=== PATIENT | female | born 1995 | race Caucasian/White ===

== ENCOUNTER 2016-03-14 02:58 | Emergency (ER) | payer OTHER ==
[~2016-03-14] VITALS: Ht 152.4 cm; Wt 83.2 kg
[~2016-03-14 02:58] MED LIST: ATV5X PO; CALC500C3 PO; IBUP-103 PO; LACT1CAP6 PO; ONDA4TAB46 PO; VANC1CAP3 PO
[2016-03-14 03:14] VITALS: TEMP 36.9; Ht 152.4 cm; Wt 83.2 kg
[2016-03-14] MEDS ORDERED: LORAZEPAM 2 MG/ML 1 ML VIAL IV STA (03:29)
[2016-03-14] MEDS ORDERED: SODIUM CHLORIDE 0.9% 1000ML 1,000 ML IV STA (03:29)
--- NOTE | 2016-03-14 03:33 | EMERGENCY ROOM VISIT NOTE ---
History Report prepared by Meenu: Cheryl Romero Under the Supervision of: Dr. Chung Rich M.D. First contact with patient: 03:23 Chief Complaint: ABDOMINAL PAIN Stated Complaint: FEVER?,STOMACH PAIN,LOOSE STOOL,DRANK SHAKEOLOGY Nursing Triage Summary: Pt states she burak a Shakeology dring yesterday and wasn't feeling well afterwards. She drank another one tonight and started having GI sx. Pt states she had an anxiety attack and want to be reassusred that she is OK. History of Present Illness The patient is a 21 year old female who presents to the Emergency Room with complaints of persistent bilateral lower quadrant abdominal pain that began today. She currently rates her discomfort as a 4/10 in severity. The patient states that she recently tried Shakeology. She states that she started feeling sick after she took the Shakeology. The patient states that she has been having abdominal pain, diarrhea, and nausea. She additionally notes that she has been feeling fatigued. The patient states that she feels warm, but denies any fever. She states that since she has been feeling ill, she has been increasingly anxious, noting that she had a panic attack. The patient denies any chest pain, shortness of breath, vomiting, urinary symptoms or chance of . She states that her dad was recently sick with an upper respiratory infection. The patient denies taking anything for her discomfort. She denies mixing the Shakeology with alcohol. Source of History: patient Onset: today Position: abdomen (bilateral lower quadrants) Symptom Intensity: 4/10 Timing: other (persistent) Associated Symptoms: + diarrhea, + fatigue, + nausea, No SOB, No chest pain , No fevers, No urinary symptoms, No vomiting Note: Associated Symptoms: panic attack, increasingly anxious. Review of Systems See HPI for pertinent positives & negatives. A total of 10 systems reviewed and were otherwise negative. Past Medical & Surgical Medical Problems: (1) Asthma (2) Bronchitis (3) Depression (4) Danny-Danlos disease (5) Pneumonia Family History Cancer Diabetes mellitus Gallbladder disease Heart disease Hypertension Kidney disease Kidney stones Lung disease Seizures Social History Smoking Status: Never Smoker Alcohol Use: none Marital Status: single Housing Status: lives with friends Occupation Status: unemployed Current/Historical Medications Scheduled Lorazepam (Lorazepam), 0.5 MG PO BID Scheduled PRN Calcium Carbonate (Tums), 500 MG PO UD PRN for Indigestion Ibuprofen Tab (Advil), 1-4 TABS PO Q4H PRN for Pain Allergies Coded Allergies: Amoxicillin (Unverified Allergy, Unknown, "hives", 03/14/16) Bacitracin (Unverified Allergy, Unknown, ., 03/14/16) Metronidazole (Verified Allergy, Unknown, hives, 03/14/16) Shellfish (Unverified Allergy, Unknown, "tongue swells with calamari", ) Valacyclovir (Verified Allergy, Unknown, LOSS OF SENSE OF DIRECTION AFTER TAKING/, 03/14/16) Morphine and Related (Verified Adverse Reaction, Unknown, "BAD FEELING", ) Uncoded Allergies: CALIMARI (Allergy, Unknown, ., 11/17/14) CT CONTRAST (Allergy, Unknown, ., 11/17/14) Physical Exam Vital Signs Date Time Temp Pulse Resp B/P Pulse Ox O2 Delivery O2 Flow Rate FiO2 03/14/16 04:29 100 20 129/89 97 Room Air 03/14/16 03:14 36.9 111 20 132/71 95 Room Air Physical Exam GENERAL: Patient is anxious appearing and in no acute distress. HEENT: No acute trauma, normocephalic atraumatic, mucous membranes moist, no nasal congestion, no scleral icterus. NECK: No stridor, no adenopathy, no meningismus, trachea is midline. LUNGS: No dyspnea. Clear to auscultation and equal bilaterally. No wheeze, no rhonchi. HEART: Mildly tachycardic rate and regular rhythm. No murmurs, rubs, gallops appreciated. ABDOMEN: Soft, nontender, bowel sounds positive, no masses appreciated, no peritonitis. BACK: No midline tenderness, no CVA tenderness EXTREMITIES: Normal motion all extremities, no cyanosis, no edema. NEUROLOGIC: Alert and oriented, no acute motor or sensory deficits, no focal weakness, cranial nerves grossly intact. SKIN: No rash, no jaundice, no diaphoresis., Medical Decision & Procedures Laboratory Results 03/14/16 03:50 Red Blood Count 4.93, Mean Corpuscular Volume 86.4, Mean Corpuscular Hemoglobin 31.0, Mean Corpuscular Hemoglobin Concent 35.9, Mean Platelet Volume 10.6, Neutrophils (%) (Auto) 55.5, Lymphocytes (%) (Auto) 36.2, Monocytes (%) (Auto) 7.1, Eosinophils (%) (Auto) 0.9, Basophils (%) (Auto) 0.2, Neutrophils # (Auto) 5.02, Lymphocytes # (Auto) 3.27, Monocytes # (Auto) 0.64, Eosinophils # (Auto) 0.08, Basophils # (Auto) 0.02 03/14/16 03:50 Test 03/14/16 03:40 03/14/16 03:50 Urine Color YELLOW Urine Appearance CLEAR (CLEAR) Urine pH 5.0 (4.5-7.5) Urine Specific Ulmer 1.006 (1.000-1.030) Urine Protein NEG (NEG) Urine Glucose (UA) NEG (NEG) Urine Ketones NEG (NEG) Urine Occult Blood NEG (NEG) Urine Nitrite NEG (NEG) Urine Bilirubin NEG (NEG) Urine Urobilinogen NEG (NEG) Urine Leukocyte Esterase SMALL (NEG) Urine WBC (Auto) 1-5 /hpf (0-5) Urine RBC (Auto) 0-4 /hpf (0-4) Urine Hyaline Casts (Auto) 1-5 /lpf (0-5) Urine Epithelial Cells (Auto) 10-20 /lpf (0-5) Urine Bacteria (Auto) PRESENT (NEG) Urine Test NEG (NEG) White Blood Count 9.04 K/uL (4.8-10.8) Red Blood Count 4.93 M/uL (4.2-5.4) Hemoglobin 15.3 g/dL (12.0-16.0) Hematocrit 42.6 % (37-47) Mean Corpuscular Volume 86.4 fL (80-100) Mean Corpuscular Hemoglobin 31.0 pg (25-34) Mean Corpuscular Hemoglobin Concent 35.9 g/dl (32-36) Platelet Count 222 K/uL (130-400) Mean Platelet Volume 10.6 fL (7.4-10.4) Neutrophils (%) (Auto) 55.5 % Lymphocytes (%) (Auto) 36.2 % Monocytes (%) (Auto) 7.1 % Eosinophils (%) (Auto) 0.9 % Basophils (%) (Auto) 0.2 % Neutrophils # (Auto) 5.02 K/uL (1.4-6.5) Lymphocytes # (Auto) 3.27 K/uL (1.2-3.4) Monocytes # (Auto) 0.64 K/uL (0.11-0.59) Eosinophils # (Auto) 0.08 K/uL (0-0.5) Basophils # (Auto) 0.02 K/uL (0-0.2) RDW Standard Deviation 40.5 fL (36.4-46.3) RDW Coefficient of Variation 12.7 % (11.5-14.5) Immature Granulocyte % (Auto) 0.1 % Immature Granulocyte # (Auto) 0.01 K/uL (0.00-0.02) Anion Gap 9.0 mmol/L (3-11) Est Creatinine Clear Calc Drug Dose 108.7 ml/min Estimated GFR () 126.1 Estimated GFR (Non- 108.8 BUN/Creatinine Ratio 19.3 (10-20) Calcium Level 9.5 mg/dl (8.5-10.1) Total Bilirubin 0.3 mg/dl (0.2-1) Direct Bilirubin < 0.1 mg/dl (0-0.2) Aspartate Amino Transf (AST/SGOT) 13 U/L (15-37) Alanine Aminotransferase (ALT/SGPT) 27 U/L (12-78) Alkaline Phosphatase 153 U/L (45-117) Total Protein 8.0 gm/dl (6.4-8.2) Albumin 4.2 gm/dl (3.4-5.0) Lipase 163 U/L (73-393) Laboratory results as reviewed by me. Medications Administered Medications (Trade) Dose Ordered Sig/Stewart Route Start Time Stop Time Status Last Admin Dose Admin Sodium Chloride (Nss 1000ml) 1,000 ml @ 999 mls/hr Q1H1M STAT IV 03/14/16 03:29 03/14/16 04:29 DC 03/14/16 03:52 999 MLS/HR Lorazepam (Ativan Tab) 1 mg NOW STAT SL 03/14/16 03:54 03/14/16 03:55 DC 03/14/16 03:59 1 MG ED Course 0323: The patient was evaluated in room B10. A complete history and physical exam was performed. 0329: Ordered Sodium Chloride 1000 ml @ 999 mls/hr IV. 0354: Ordered Ativan Tab 1 mg SL. 0435: I reevaluated the patient and she is still feeling anxious. I discussed the exam findings with her. I discussed the treatment plan with her and she states that she will take Benadryl at home if she is still anxious. She notes that her therapist has diagnosed with somatization disorder. She is in agreement with the plan. She is ready to go home. Medical Decision 21 yr old female arrives for evaluation of abdominal pain. Pain is vague, mild and without any TTP. Labs are completely unremarkable. She does not have evidence of intraabdominal infection. She has no respiratory, cardiac complaints. Symptoms are not consistent with allergic reaction. May be early GI bug versus irritation from this dieting drink she drank. I feel much of her issue is more anxiety related. I know her from previous visits and review of chart reveals many previous visits for anxiety, stress, and in particular anxiety about her health. She is stable and looks well otherwise. She was given ativan though she continued to just get herself more worked up. I discussed trying other sedative medications but after being told that everything looks fine she would prefer to go home and try sleeping. Suggested she try benadryl tablet at home if need be. Impression Primary Impression: Abdominal discomfort, generalized Additional Impressions: Acute anxiety Anxiety about health Scribe Attestation The scribe's documentation has been prepared under my direction and personally reviewed by me in its entirety. I confirm that the note above accurately reflects all work, treatment, procedures, and medical decision making performed by me. Departure Information Dispostion Home / Self-Care Referrals Yonathan Trejo M.D. (PCP) Forms HOME CARE DOCUMENTATION FORM, IMPORTANT VISIT INFORMATION Patient Instructions Anxiety Body Response, My [facility] Health Problem Qualifiers
[2016-03-14] MEDS ORDERED: LORAZEPAM 1 MG TAB SL STA (03:54)
[2016-03-14 03:59] LABS: URINE APPEARANCE CLEAR (CLEAR); URINE BILIRUBIN NEG (NEG); URINE COLOR YELLOW; URINE NITRITE NEG (NEG); URINE SPECIFIC GRAVITY 1.006 (1.000-1.030); UROBILINOGEN NEG (NEG); ZZUR CULT IF INDIC CLEAN CATCH NO
[2016-03-14 04:01] LABS: MANUAL MICROSCOPIC REQUIRED? NO; REVIEW REQ? YES
[2016-03-14 04:03] LABS: BASO % 0.2 %; BASO ABS # 0.02 K/uL (0-0.2); COMPLETE YES; EOS % 0.9 %; HEMATOCRIT 42.6 % (37-47); IG% 0.1 %; LYMPH % 36.2 %; LYMPH ABS # 3.27 K/uL (1.2-3.4); MEAN CELL VOLUME 86.4 fL (80-100); MEAN CORPUSCULAR HGB CONC 35.9 g/dl (32-36); MEAN PLATELET VOLUME 10.6 fL (7.4-10.4); MONO % 7.1 %; NEUT % 55.5 %; PLATELET COUNT 222 K/uL (130-400); RED BLOOD COUNT 4.93 M/uL (4.2-5.4); WHITE BLOOD COUNT 9.04 K/uL (4.8-10.8)
[2016-03-14 04:23] LABS: ALT/SGPT 27 U/L (12-78); AST/SGOT 13 U/L (15-37); BLOOD UREA NITROGEN 15 mg/dl (7-18); BUN/CREATININE RATIO 19.3 (10-20); CALCIUM 9.5 mg/dl (8.5-10.1); CARBON DIOXIDE 25 mmol/L (21-32); CHLORIDE 105 mmol/L (98-107); CREATININE 0.77 mg/dl (0.60-1.20); GLUCOSE 95 mg/dl (70-99); POTASSIUM 3.6 mmol/L (3.5-5.1); SODIUM 139 mmol/L (136-145)
[2016-03-14 04:25] LABS: ALKALINE PHOSPHATASE 153 U/L (45-117)
[2016-03-14 04:29] VITALS: BP 129/89; PULSE 100; O2SAT 97
== END 2016-03-14 04:51 | disposition home or self-care (01) ==
LOC: C.EDB 03:00
DX: R10.84 Generalized abdominal pain (principal); F41.9 Anxiety disorder, unspecified; J45.909 Unspecified asthma, uncomplicated; Z87.01 Personal history of pneumonia (recurrent); Z83.3 Family history of diabetes mellitus; Z82.49 Family history of ischemic heart disease and other diseases of the circulatory system; Z82.0 Family history of epilepsy and other diseases of the nervous system; Z84.1 Family history of disorders of kidney and ureter; Z79.899 Other long term (current) drug therapy